=== PATIENT | female | born 1955 | race Caucasian/White ===

== ENCOUNTER 2018-09-14 16:09 | Outpatient (REF) | payer BC, SELFPAY ==
[2018-09-14 21:32] LABS: Anion Gap 21.4 mmol/L (3-11); BUN 12 mg/dL (7-18); CO2 16.6 mmol/L (21.0-32.0); CREATININE 1.05 mg/dL (0.55-1.02); Calcium 9.3 mg/dL (8.5-10.1); Chloride 98 mmol/L (98-107); Cholesterol 380 mg/dL (50-200); Glucose 73 mg/dL (70-100); HDL Cholesterol 48 mg/dL (40-60); LDL CHOLESTEROL 298 mg/dL (<100); Potassium 3.9 mmol/L (3.5-5.1); Sodium 136 mmol/L (136-145); Triglyceride 111 mg/dL (30-150)
== END 2018-09-14 16:29 ==
LOC: NCHCN 16:09
PROVIDERS: Visit Provider Specialist/Technologist Athletic Trainer
DX: Z00.00 Encounter for general adult medical examination without abnormal findings (principal); Z13.220 Encounter for screening for lipoid disorders; Z13.228 Encounter for screening for other metabolic disorders
CPT/HCPCS: 80048; 80061; 83721